=== PATIENT | female | born 1975 | race Caucasian/White ===

== ENCOUNTER 2022-03-22 10:39 | Emergency (ER) | payer OTHER, SELFPAY ==
--- NOTE | ~2022-03-22 | XR_ITS ---
EXAMINATION: XR shoulder RT min 2V DATE: 03/22/2022 11:04 INDICATION: Right shoulder pain post fall from ladder. TECHNIQUE: AP and transscapular Y views of the right shoulder were obtained. COMPARISON: None FINDINGS: Comminuted 3 part fracture at the proximal right humerus including greater than 1 cm anterior and pro ximal displacement of a transverse fracture at the surgical neck as well as one 1:30 0.5 cm posterior displacement of fracture plane the greater tuberosity from the remainder of the humeral h ead. 1 cm anterior displacement of an additional small fracture fragment located caudal to the level of the lesser tuberosity, the latter which remains contiguous with the humeral head. The humeral head remains normally centered over the glenoid. No other fractures identified. 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 Visualized portion of the lungs are clear. Soft tissue swelling at the rig ht shoulder centered about the humeral fracture. IMPRESSION: Comminuted 3 part fracture at the proximal right humerus. Reviewed, dictated and finalized at location B.
[2022-03-22 10:45] VITALS: BP 129/86; PULSE 92; RESP 16; TEMP 37.7; O2SAT 99
--- NOTE | 2022-03-22 11:03 | ED.UPPEXIN ---
HPI - Extremity Injury (Upper) General Chief Complaint: Extremity Injury, Upper Stated Complaint: Right Shoulder Pain Time Seen by Provider: 03/22/22 11:03 Source: patient and RN notes reviewed Mode of arrival: ambulatory Limitations: no limitations History of Present Illness HPI narrative: 46-year-old female presents to the [facility] with complaints of right shoulder pain after fall approximately 5 feet off a ladder. Significant bruising, swelling noted. Capillary refill 5 seconds distal to injury. 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 No midline tenderness. Denies hitting head or loss of consciousness. Related Data Allergies Allergy/AdvReac Type Severity Reaction Status Date / Time No Known Allergies Allergy Unverified 03/29/16 16:22 Review of Systems Review of Systems: All systems reviewed & are unremarkable except as noted in HPI and below Constitutional: Constitutional: Reports no additional constitutional complaints, Denies chills and Denies fever(s) Eyes: Eyes: Reports no additional eye complaints ENT: Reports system reviewed and no additional complaints, except as documented Cardiovascular: Cardiovascular: Reports no additional cardiovascular complaints Respiratory: Respiratory: Reports no additional respiratory complaints Gastrointestinal: Gastrointestinal: Reports no additional gastrointestinal complaints Musculoskeletal: Musculoskeletal: Reports as per HPI, Reports arthralgias and Reports joint swelling (Right shoulder) Integumentary/Breasts: Skin/Breast: Reports as per HPI (Bruising anterior right shoulder) Neurologic: Reports system reviewed and no additional complaints, except as documented Psychiatric: Psychiatric: Reports no additional psychiatric complaints Allergic/Immunologic: Allergic/Immunologic: Reports no additional allergic/immunologic complaints PMFSH Past Medical History Medical History (Updated 03/22/22 @ 19:11 by Inez Hawkins APRN) No significant medical problems Surgical History Surgical History (Updated 03/22/22 @ 11:28 by Inez Hawkins APRN) No history of previous surgery Social History Social History (Updated 03/22/22 @ 11:28 by Inez Hawkins APRN) Living arrangements: alone Gender identity (if verbalized by the patient): Female Comments At the time of my signature, I reviewed and agree with the nursing past medical, surgical, social, and family history. There is no relevant family history pertinent to the patient complaint. Exam Const: General: healthy appearing, alert and acute distress moderate (pain) Nutritional Appearance: well nourished Orientation/consciousness: patient oriented x3 Limitations: no limitations HENMT: Head: normal to inspection Ears: external ears normal Eyes: General: appearance normal, both eyes and all related structures Pupils: Equal, round and reactive pupils present Neck: Neck: normal visual inspection, no lymphadenopathy and no meningeal signs Chest: Chest palpation & inspection: normal inspection of the chest Resp: Effort & Inspection: normal respiratory effort and no use of accessory muscles Auscultation: clear to auscultation bilaterally, no crackles, no rales, no rhonchi and no wheezes Cardio: Rate: regular rate Rhythm: regular rhythm GI: GI Palp: Yes Soft to palpation and No Tenderness to palpation present (GI) Back/Spine/Pelvis: Cervical Spine: normal cervical lordosis, cervical ROM normal, No cervical muscular tenderness, No pain with cervical ROM and No Cervical spine tenderness Thoracic/Lumbar Spine: thoracic and lumbar spine normal to inspection, thoraco-lumbar ROM normal, No thoracic spinal tenderness and No lumbar spinal tenderness Skin: General skin exam: normal color Rashes: no rashes Wounds: no wounds Other: Bruise noted anterior right shoulder and upper arm Neuro: General: patient oriented x3, moves all extremities, no meningeal signs and no focal motor deficits Cranial nerves: Ye
== END 2022-03-22 11:45 | disposition short-term general hospital (02) ==
PROVIDERS: Emergency Provider Nurse Practitioner
DX: S42.201A Unspecified fracture of upper end of right humerus, initial encounter for closed fracture (principal); W11.XXXA Fall on and from ladder, initial encounter
CPT/HCPCS: 73030; 99214; A4565; G0463